=== PATIENT | female | born 1960 | race Caucasian/White ===

== ENCOUNTER 2020-08-06 15:21 | Inpatient (IN) | payer MEDICARE, MEDICAID ==
--- NOTE | 2020-08-06 15:32 | ED.PDOC ---
History of Present Illness - General Chief Complaint: Respiratory Problem Stated Complaint: tested +Covid, back pain Time Seen by Provider: 08/06/20 15:30 Source: patient - History of Present Illness Initial Comments: I was present at bedside shortly after ED arrival at 1550. 59-year-old female with past medical history of hypertension, severe COPD with chronic hypoxia on 3 L nasal cannula home oxygen, CAD with history of coronary stents, chronic smoker who presents with chief complaint of shortness of breath. Patient was sent over from [facility] by Dr. Hancock for evaluation. Patient reports initial onset of symptoms 3 days ago with worsening cough and shortness of breath since then. Symptoms further worsened overnight and this morning. She reports frequent cough which is now productive for green sputum. She reports her dyspnea at baseline is usually 5/10 severity. Currently reports it at 9/10 severity. She states it feels like she cannot take a deep breath, especially on the right side. Dyspnea and cough are worse with exertion, better at rest. She has been taking her home nebulized inhaler frequently for the past several days but has not taken it at all today. On arrival patient was noted to speak in full sentences comfortably and had O2 sats 91-94% on her baseline 3 L by nasal cannula. Denies any chest pain, sore throat, fevers, chills, abdominal pain, nausea/ vomiting/diarrhea, urinary symptoms, leg swelling. Does report slight headaches and body aches. She tested positive for COVID-19 at the clinic and was sent to be hypoxic there so she was referred to the ED for possible admission. She did have recent COVID-19 exposure by 2 different individuals. The hospitalist called to inform me that she was being sent over by Dr. Hancock, her PCP. The patient does admit to continued smoking of 1/3 pack/day cigarettes. Allergies/Adverse Reactions: Allergies Codeine Adverse Reaction (Verified 08/06/20 20:32) Home Medications: Ambulatory Orders Albuterol Sulfate Nebs [Proventil Nebs] 2.5 mg INH Q4HR PRN 08/06/20 Albuterol Sulfate [Albuterol Sulfate Hfa] 1 unit NEB Q4H PRN 08/06/20 Fluticasone/Salmeterol 250/50 [Advair Diskus] 0 mcg INH DAILY 08/06/20 LORazepam [Ativan] 1 mg PO Q12H PRN 08/06/20 Sertraline HCl [Zoloft] 25 mg PO BID 08/06/20 Tramadol HCl [Ultram] 100 mg PO Q6H PRN 08/06/20 traZODone HCL [Desyrel] 200 mg PO BEDTIME 08/06/20 Review of Systems - Review of Systems Review of Systems: 08/06/20 16:14 as per HPI All other Systems: Reviewed and Negative Past Medical History (General) - Patient Medical History Hx Dementia: No Hx of COPD: Yes Hx Cardiac Disorders: Yes Hx Hypertension: No Hx Diabetes: No Hx Cancer: No - Vaccination History Hx Tetanus, Diphtheria Vaccination: No Hx Influenza Vaccination: Yes Hx Pneumococcal Vaccination: Yes - Social History Hx Tobacco Use: Yes Hx Alcohol Use: No Hx Substance Use: No Hx Substance Use Treatment: No Hx Depression: No Family Medical History - Family History Mother Family History: Unknown Father Living Status: Age at (years of age): 51 Cause of : drug overdos Physical Exam - Physical Exam General Appearance: Alert, Comfortable, No apparent distress Eye Exam: bilateral normal Ears, Nose, Throat: hearing grossly normal, normal ENT inspection, normal pharynx Neck: full range of motion, supple, normal inspection Respiratory: no respiratory distress, no accessory muscle use, rales - Faint crackles bilateral lung bases, other - Diminished breath sounds throughout and mild end expiratory wheezing noted throughout Cardiovascular/Chest: normal peripheral pulses, no edema, no gallop, no JVD, no murmur, tachycardia Peripheral Pulses: radial,right: 2+, radial,left: 2+ Gastrointestinal/Abdominal: non tender, soft, no organomegaly Back Exam: normal inspection, no CVA tenderness, no vertebral tenderness Extremity: normal range of motion, non-tender, normal inspection, no pedal edema, no calf tenderness, normal capillary refill 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 Consider also CHF, bacterial pneumonia, ACS, influenza, other -Obtain COVID-19 order set, rapid flu testing -Place peripheral IV, Decadron 6 mg IV, breathing treatments, supplemental O2, anticipate hospitalist consultation for admission 08/06/20 18:02 -Pt remained stable, SPO2 at 91% on her baseline 3 L by nasal cannula. She does reports mild improvement in dyspnea with the breathing treatment and Decadron IV. She reported slight worsening of her her headache after the Decadron but it is now better. Repeat auscultation reveals slightly improved breath sounds and resolved wheezes but still diminished throughout. Remains with mild tachycardia. -Blood work is pretty reassuring, serum WBC, D-dimer, CRP levels all within normal limits. Flu testing negative. Urinalysis is consistent with UTI. Labs otherwise pretty unremarkable. -Given the patient's history of severe COPD with borderline hypoxia and diminished breath sounds, I advised hospital admission and patient agrees. Discussed patient with Deric Mendez who accepts to his service. We will begin NS 500 mL bolus and Rocephin 1 g IV in the ED for UTI. Jacinto Ferguson MD Billing #[id number] 08/06/20 15:30 Telemetry STAT EKG STAT Pulse Ox, Continuous Monitoring STAT 08/06/20 15:38 RAPID SARS-CoV-2 RNA Stat 08/06/20 15:45 Oxygen STAT 08/06/20 16:58 URINE CULTURE W/COLONY COUNT Stat 08/06/20 17:55 cefTRIAXone SODIUM [Rocephin] 1 gm Sodium Chl 0.9% 50Ml Min-Bag+ [NS 50ml MINI-BAG+] 50 ml IVPB ONCE 08/06/20 17:57 Sodium Chloride 0.9% 500Ml [NS 500ml] 500 ml IVS ONCE 08/07/20 15:30 Pulse Ox, Continuous Monitoring STAT 08/08/20 15:30 Pulse Ox, Continuous Monitoring STAT 08/09/20 15:30 Pulse Ox, Continuous Monitoring STAT Laboratory Results - last 24 hr 08/06/20 08/06/20 08/06/20 15:43 15:43 15:43 WBC 7.1 RBC 4.87 Hgb 13.0 Hct 38.8 MCV 79.7 L MCH 26.7 L MCHC 33.5 RDW 14.9 H Plt Count 262 MPV 8.1 Absolute Neuts (auto) 4.30 Absolute Lymphs (auto) 1.70 Absolute Monos (auto) 0.70 Absolute Eos (auto) 0.20 Absolute Basos (auto) 0.10 Neutrophils % 61.6 Lymphocytes % 24.4 Monocytes % 9.8 H Eosinophils % 3.4 Basophils % 0.8 PTT (SP) 24.2 D-Dimer, Quantitative 255.0 Sodium 135 Potassium 3.9 Chloride 100 L Carbon Dioxide 24 Anion Gap 14.9 BUN 15 Creatinine 0.85 BUN/Creatinine Ratio 17.6 Random Glucose 98 Serum Osmolality 270.9 L Calcium 8.8 Magnesium 1.8 Total Bilirubin 0.6 AST 26 ALT 32 Alkaline Phosphatase 76 LD Total 141 Creatine Kinase 69 Troponin I C-Reactive Protein 0.9 B-Natriuretic Peptide 25.4 Serum Total Protein 7.5 Albumin 3.8 Globulin 3.7 H Albumin/Globulin Ratio 1.0 L Urine Color Urine Appearance Urine pH Ur Specific [place] Urine Protein Urine Glucose (UA) Urine Ketones Urine Blood Urine Nitrite Urine Bilirubin Urine Urobilinogen Ur Leukocyte Esterase Urine RBC Urine WBC Ur Epithelial Cells Urine Bacteria Urine Trichomonas 08/06/20 08/06/20 15:43 16:58 WBC RBC Hgb Hct MCV MCH MCHC RDW Plt Count MPV Absolute Neuts (auto) Absolute Lymphs (auto) Absolute Monos (auto) Absolute Eos (auto) Absolute Basos (auto) Neutrophils % Lymphocytes % Monocytes % Eosinophils % Basophils % PTT (SP) D-Dimer, Quantitative Sodium Potassium Chloride Carbon Dioxide Anion Gap BUN Creatinine BUN/Creatinine Ratio Random Glucose Serum Osmolality Calcium Magnesium Total Bilirubin AST ALT Alkaline Phosphatase LD Total Creatine Kinase Troponin I < 0.02 C-Reactive Protein B-Natriuretic Peptide Serum Total Protein Albumin Globulin Albumin/Globulin Ratio Urine Color Yellow Urine Appearance Cloudy Urine pH 5.5 Ur Specific [place] 1.020 Urine Protein Negative Urine Glucose (UA) Negative Urine Ketones Negative Urine Blood Negative Urine Nitrite Negative Urine Bilirubin Negative Urine Urobilinogen 0.2 Ur Leukocyte Esterase Moderate H Urine RBC 3-5 H Urine WBC 30-40 H Ur Epithelial Cells 10-20 Urine Bacteria 2+ H Urine Trichomonas 0-1 H - EKG/XRAY/CT EKG: Sinus, Tachy - Heart rate 115, no ST elevations or Q waves noted, nonspecific T wave inversions noted in V1, axis normal, intervals normal, no prior EKG for comparison. XRAY: chest - patchy bibasilar airspace opacities, worse on the Right c/w COVID- 19 pneumonia per my read Departure - Departure Clinical Impression: Pneumonia due to COVID-19 virus UTI (urinary tract infection) Qualifiers: Urinary tract infection type: acute cystitis Hematuria presence: without hematuria Qualified Code(s): N30.00 - Acute cystitis without hematuria Time of Disposition: 18:00 Disposition: Admit Patient Condition: Fair Home Medications: Ambulatory Orders Albuterol Sulfate Nebs [Proventil Nebs] 2.5 mg INH Q4HR PRN 08/06/20 Albuterol Sulfate [Albuterol Sulfate Hfa] 1 unit NEB Q4H PRN 08/06/20 Fluticasone/Salmeterol 250/50 [Advair Diskus] 0 mcg INH DAILY 08/06/20 LORazepam [Ativan] 1 mg PO Q12H PRN 08/06/20 Sertraline HCl [Zoloft] 25 mg PO BID 08/06/20 Tramadol HCl [Ultram] 100 mg PO Q6H PRN 08/06/20 traZODone HCL [Desyrel] 200 mg PO BEDTIME 08/06/20 Decision To Admit - Decistion To Admit Decision to Admit Reason: Admit from ER Decision to Admit Date: 08/06/20 Decision to Admit Time: 18:00
--- NOTE | 2020-08-06 16:06 | RAD ---
Study: Single Frontal Radiograph of the Chest. Indication:COVID+, dyspnea Comparison: None Impression: Heart size normal. Atherosclerosis aorta. Patchy opacities bilateral lung bases, right greater than left, concerning for pneumonia. COVID-19 could give this appearance. Small right and tiny left pleural effusions. No pneumothorax. Electronically signed by: Jonathon Triana MD 08/06/2020 4:05 PM [employer]
[2020-08-06] MEDS ORDERED: DEXAMETHASONE INJ 4 MG/ML VIAL IV ONE (16:18)
[2020-08-06] MEDS ORDERED: IPRATROPIUM/ALBUTEROL 3 ML VIAL NEB ONE (16:18)
[2020-08-06] MEDS ORDERED: cefTRIAXone SODIUM 1 GM in SODIUM CHL 0.9% 50ML MIN-BAG+ 50 ML IVPB ONE (17:55)
[2020-08-06] MEDS ORDERED: SODIUM CHLORIDE 0.9% 1000ML 1,000 ML IVS ONE (17:55)
[2020-08-06] MEDS ORDERED: SODIUM CHLORIDE 0.9% 500ML 500 ML IVS ONE (17:57)
[2020-08-06] MEDS ORDERED: NICOTINE PATCH 21 MG TD ONE (17:59)
--- NOTE | 2020-08-06 18:37 | HP ---
SUPERVISING PHYSICIAN: Max Omer MD CHIEF COMPLAINT: Shortness of breath, positive for COVID. HISTORY OF PRESENT ILLNESS: Ms. Bryant is a 59-year-old female patient who has a history of hypertension, severe end-stage chronic obstructive pulmonary disease, chronic hypoxia on 3 liters nasal cannula oxygen with a 3- pack per day history of smoking, coronary artery disease and coronary stents. She presented to the Emergency Room today complaining of shortness of breath. She was referred to the ER from [place] by Dr. Hancock for evaluation after testing positive for COVID and having 3 days of worsening symptoms with cough and shortness of breath. Her symptoms worsened overnight to where she was using her inhaler frequently. She is having productive green sputum and frequent cough. She endorsed that she felt like she could not take a deep breath, especially on the right side. On arrival to the ER, she was showing O2 saturations of 94% on [address] Hancock requested that she be sent to the ER for evaluation for possible admission to the hospital for more aggressive treatment with Remdesivir. Laboratory studies on admission showed she had normal white count without a left shift. Coagulation studies showed normal D-dimer. Chemistries were fairly unremarkable with a normal C-reactive protein and troponin less than 0.02. Chest x-ray showed patchy opacities in bilateral lung bases, greater on the right than the left, concerning for pneumonia. She was started on treatment with Rocephin initially. A urinalysis was also done which showed that she had a significant urinary tract infection. Vital signs were actually showing she was stable, she was afebrile with temperature 97.4. She was mildly tachycardic at 110. Initial respiratory rate was 28, again, saturation 90% on nasal cannula at rest. With treatments, she improved to 94% with 3 liters nasal cannula which she normally wears at home. Given her multiple comorbidities, increasing shortness of breath and positive testing for COVID, she is going to be admitted for initiation of treatment of COVID pneumonia. She was admitted in stable condition. PAST MEDICAL HISTORY: 1. Hypertension. 2. End-stage chronic obstructive pulmonary disease, recently on hospice, but now removed from hospice, with chronic hypoxia on home O2. 3. Coronary artery disease with history of coronary stents. 4. Chronic tobacco abuse in a smoker. 5. Depression and anxiety. PAST SURGICAL HISTORY: 1. Coronary artery stents. MEDICATIONS: 1. Lorazepam 1 mg q.12h. as needed. 2. Advair Diskus daily. 3. Tramadol 100 mg q.6h. p.r.n. 4. Trazodone 200 mg at bedtime. 5. Sertraline 25 mg b.i.d. 6. Albuterol inhalers as needed. ALLERGIES: CODEINE. FAMILY HISTORY: Noncontributory to current admission. SOCIAL HISTORY: The patient resides in [place]. She is , disabled. She is a heavy smoker of approximately 3 packs per day. She denies any alcohol or illicit drug use. REVIEW OF SYSTEMS: CONSTITUTIONAL: Positive for general malaise. Denies weight loss, fevers. HEENT: She does report slight headaches. Denies sore throats, earaches, nasal congestion, vision changes. RESPIRATORY: As per history of present illness, increasing shortness of breath. CARDIOVASCULAR: Denies chest pain, palpitations or syncopal episodes. GASTROINTESTINAL: Denies nausea, vomiting, diarrhea, constipation or abdominal pain. GENITOURINARY: Denies dysuria, hematuria, polyuria. MUSCULOSKELETAL: Denies arthralgias, joint swelling. SKIN: Denies lesions, rashes, moles or unexplained changes. NEUROLOGIC: Denies vision changes, syncopal episodes, ataxia, seizures or focal deficits. HEMATOLOGIC: Denies unexplained bleeding, bruising or transfusion reactions. PHYSICAL EXAMINATION: VITAL SIGNS: In the ER, temperature 97.4, pulse 110, blood pressure 116/88, respirations 24 to 28, saturation initially 90% on nasal cannula at 2 liters. Increasing to 3 liter, she maintained O2 saturation of 96%. GENERAL: The patient is comfortable, in no acute distress. She is alert. She is resting. HEENT: Tympanic membranes clear bilaterally. Oropharynx is pink, moist without any lesions. NECK: Supple, nontender with full range of motion. No jugular venous distention noted. RESPIRATORY: Lung sounds with some mild crackles in bilateral lung bases, diminished throughout with some inspiratory and expiratory wheezing. CARDIOVASCULAR: Regular rate and rhythm. Tachycardic on the monitor without any appreciable murmurs, gallops, or rubs. ABDOMEN: Soft, nontender. Positive bowel sounds. BACK: No CVA or vertebral tenderness. EXTREMITIES: There is no cyanosis, clubbing or edema. NEUROLOGIC: Cranial nerves II-XII are grossly intact. Facial features are symmetrical. Extraocular movements are within normal limits. There is no nystagmus noted. The patient is alert and oriented times three. SKIN: Warm, pink and dry. LABORATORY: White count 7,100, hemoglobin 13.0, hematocrit 38.8. MCV, MCH show microcytic/hypochromic presentation. Platelet count 262,000. Differential is without a left shift. Coagulation studies showed normal D-dimer, normal PTT. Chemistries showed normal electrolytes with carbon dioxide 24, anion gap normal, BUN 15, creatinine 0.85, calcium 8.8, magnesium 1.8. Liver functions all within normal limits. Troponin less than 0.02. C-reactive protein 0.9. Urinalysis did show moderate leukocyte esterase with 3 to 5 RBCs on microscopic, 30 to 40 WBCs, 10 to 20 epithelials with 2+ bacteria with 0 to 1 trichomonas. MICROBIOLOGY: Urine culture pending. She tested positive for COVID 3 days previously, I believe, in [place]. Influenza A and B today in the ER was negative for A and B by PCR. RADIOLOGY: Chest x-ray per radiologic interpretation of single view chest showed patchy opacities in bilateral lung bases, right greater than left, concerning for pneumonia . ASSESSMENT: 1. COVID-19 pneumonitis with developing pneumonia. 2. Chronic obstructive pulmonary disease exacerbation secondary to #1. 3. Chronic nicotine addiction in a smoker. 4. Hypertension. 5. Depression and anxiety. 6. Urinary tract infection with cultures pending. 7. Trichomonas infestation with cultures pending, treatment initiated. PLAN: Ms. Bryant is going to be admitted for treatment of COVID pneumonia. She was started on protocol with Remdesivir, azithromycin, Rocephin, Decadron. We will start her on Lovenox for DVT prophylaxis per protocol. She will be on aggressive pulmonary hygiene. We will start her on a nicotine patch given her history of smoking. She will have albuterol inhaler treatments as needed. She is chronically O2 dependent at 3 liters at home. We will continue to titrate her oxygen to that level to maintain O2 saturations as appropriate to care. I would anticipate her length of stay to be at least 2 to 3 days. Until the patient can transition to outpatient management, we will continue to monitor and treat as needed. #[id number] MTDD
[2020-08-06] MEDS ORDERED: traMADol HCL 50 MG TAB PO ONE (18:55)
[2020-08-06] MEDS ORDERED: SODIUM CHLORIDE 0.9% (FLUSH) 10 ML SYG IV PRN (20:18)
[2020-08-06] MEDS ORDERED: ONDANSETRON INJ 4 MG/2 ML VIAL IV PRN (20:18)
[2020-08-06] MEDS ORDERED: ACETAMINOPHEN 325 MG TAB PO PRN (20:18)
[2020-08-06] MEDS ORDERED: REMDESIVIR 200 MG in SODIUM CHLORIDE 0.9% 250ML 250 ML IVPB ONE (20:22)
[2020-08-06] MEDS ORDERED: ALBUTEROL INHALER 64 PUFF/8GM INH PRN (20:24)
[2020-08-06] MEDS ORDERED: IV SET AND CAP CHANGE INJ INJ SCH (20:30)
[2020-08-06] MEDS ORDERED: SERTRALINE HCL 50 MG TAB ONE (20:34)
[2020-08-06] MEDS ORDERED: traMADol HCL 50 MG TAB ONE (20:34)
[2020-08-06] MEDS ORDERED: LORazepam 1 MG TAB ONE (20:34)
[2020-08-06] MEDS ORDERED: traZODone HCL 100 MG TAB PO ONE (20:34)
[2020-08-06] MEDS ORDERED: SODIUM CHLORIDE 0.9% 250ML 500 ML ONE (20:35)
[2020-08-06] MEDS ORDERED: REMDESIVIR IV 100 MG VIAL ONE (20:35)
[2020-08-06] MEDS ORDERED: AZITHROMYCIN IV 500 MG VIAL IVPB ONE (20:35)
[2020-08-06] MEDS: ENOXAPARIN SODIUM 40 MG/0.4 ML SYG SUBCU SCH (20:50)
[2020-08-06] MEDS ORDERED: LORazepam 1 MG TAB PO PRN (21:17)
[2020-08-06] MEDS: traZODone HCL 100 MG TAB PO SCH (21:28)
[2020-08-06] MEDS ORDERED: NON-FORMULARY MEDICATION 1 EA MIS (Sertraline Hcl [Zoloft] 25 MG) PO SCH (21:30)
[2020-08-06] MEDS: AZITHROMYCIN IV 500 MG in SODIUM CHLORIDE 0.9% 250ML 250 ML IVPB SCH (22:51)
[2020-08-07] MEDS: traMADol HCL 50 MG TAB PO PRN ×3 (05:20→22:21)
[2020-08-07] MEDS: OMEPRAZOLE CAP 20 MG CAP PO SCH (06:04)
--- NOTE | 2020-08-07 08:06 | RAD ---
EXAM DESCRIPTION: Chest,1 View CLINICAL HISTORY: covid PNA COMPARISON: August 06, 2020 IMPRESSION: Single AP portable upright view of the chest shows mild enlargement of the cardiac silhouette without pulmonary vascular congestion. Lungs are normally aerated. Interstitial alveolar airspace infiltrates in the right lower chest are again seen mildly improved from previous. Mild interstitial thickening in the left lower lobe is also seen stable from previous. No pleural effusion or pneumothorax is seen. Electronically signed by: Jose Daniel Hickman MD 08/07/2020 8:04 AM [facility]
[2020-08-07] MEDS ORDERED: SODIUM CHL 0.9% 50ML MIN-BAG+ 50 ML IVPB ONE (08:09)
[2020-08-07] MEDS ORDERED: cefTRIAXone SODIUM 1 GM VIAL ONE (08:09)
[2020-08-07] MEDS ORDERED: SERTRALINE HCL 50 MG TAB ONE (08:09)
[2020-08-07] MEDS: ALBUTEROL INHALER 64 PUFF/8GM INH SCH ×4 (08:10→19:35)
[2020-08-07] MEDS ORDERED: AZITHROMYCIN IV 500 MG VIAL IVPB ONE (08:20)
[2020-08-07] MEDS ORDERED: SODIUM CHLORIDE 0.9% 250ML 0 ML ONE (08:20)
[2020-08-07] MEDS: cefTRIAXone SODIUM 1 GM in SODIUM CHL 0.9% 50ML MIN-BAG+ 50 ML IVPB SCH (08:40)
[2020-08-07] MEDS: DEXAMETHASONE INJ 10 MG/ML VIAL IV SCH (08:40)
[2020-08-07] MEDS: BIFIDOBACTERIUM INFANTIS 4 MG CAP PO SCH (08:40)
[2020-08-07] MEDS: metroNIDAZOLE 500 MG TAB PO SCH ×2 (08:41→20:55)
[2020-08-07] MEDS: SERTRALINE HCL 50 MG TAB PO SCH ×2 (08:41→20:54)
[2020-08-07] MEDS: guaiFENesin ER TAB 600 MG TAB PO SCH ×2 (08:54→20:54)
[2020-08-07] MEDS: REMDESIVIR 100 MG in SODIUM CHLORIDE 0.9% 250ML 250 ML IVPB SCH (11:56)
[2020-08-07] MEDS: FLUTICASONE/SALMETEROL 250/50 14 PUFF/17 GM INH INH SCH ×2 (15:49→19:35)
[2020-08-07] MEDS ORDERED: MAGNESIUM HYDROXIDE 30 ML UD PO ONE (16:05)
[2020-08-07] MEDS: NICOTINE PATCH 21 MG TD SCH (16:58)
--- NOTE | 2020-08-07 17:02 | PN ---
SUPERVISING PHYSICIAN: Max Omer MD DATE: 08/07/20 SUBJECTIVE: The patient is lying in bed. She is feeling some better, but still quite weak. She has not had a bowel movement in over a week. She did say that the nicotine patch did help. No other complaints noted. OBJECTIVE: VITAL SIGNS: Temperature 98.2, heart rate 92, blood pressure 129/77, respiratory rate 22, O2 saturation 93% on 3 liters nasal cannula. RESPIRATORY: Diminished throughout. She does get slightly tachypneic with exertion. CARDIAC: Regular rate and rhythm. NEUROLOGIC: Awake, alert and oriented times three. LABORATORY: WBCs 4,600, hemoglobin 14.7, hematocrit 43.7. Fibrinogen 461, D- dimer 413. Electrolytes are basically within normal limits. LD 80. MICROBIOLOGY: Urine culture is still pending. RADIOLOGY: Single AP portable upright view of the chest mild enlargement of the cardiac silhouette without pulmonary vascular congestion. Lungs are normally aerated. Interstitial alveolar airspace infiltrates in the right lower chest are again seen, mildly improved from previous. Mild interstitial thickening in the left lower lobe is also from previous. No pleural effusion or pneumothorax is seen. All other labs and films have been reviewed via the EMR. ASSESSMENT: 1. COVID-19 pneumonitis with developing pneumonia. 2. Chronic obstructive pulmonary disease with acute exacerbation secondary to #1. 3. Chronic nicotine addiction in a smoker. 4. Hypertension. 5. Depression and anxiety. 6. Urinary tract infection with cultures pending. 7. Trichomonas infestation with cultures pending. PLAN: We will continue present supportive care including the COVID-19 pneumonitis guidelines. We will monitor the labs closely and follow as needed. Her cultures will also be followed. She will have aggressive pulmonary hygiene and hopefully we can discharge in the next one to two days. #[id number] MTDD
[2020-08-07] MEDS: AZITHROMYCIN IV 500 MG in SODIUM CHLORIDE 0.9% 250ML 250 ML IVPB SCH (20:30)
[2020-08-07] MEDS: ENOXAPARIN SODIUM 40 MG/0.4 ML SYG SUBCU SCH (20:55)
[2020-08-07] MEDS: traZODone HCL 100 MG TAB PO SCH (20:55)
[2020-08-08] MEDS: traMADol HCL 50 MG TAB PO PRN ×2 (04:23→11:38)
[2020-08-08] MEDS: OMEPRAZOLE CAP 20 MG CAP PO SCH (05:56)
--- NOTE | 2020-08-08 07:54 | RAD ---
EXAM DESCRIPTION: Chest,1 View CLINICAL HISTORY: covid PNA COMPARISON: August 07, 2020 IMPRESSION: Single AP portable upright view of the chest shows mild enlargement of the cardiac silhouette without pulmonary vascular congestion. Stable tortuosity the thoracic aorta. Lungs are normally aerated. Mild interstitial and alveolar airspace opacification in the right lower lobe is similar to slightly improved compared to previous exam compatible with pneumonia. No new infiltrates or consolidations are seen. No pleural effusion or pneumothorax is identified.. Electronically signed by: Jose Daniel Hickman MD 08/08/2020 7:52 AM [facility]
[2020-08-08] MEDS: FLUTICASONE/SALMETEROL 250/50 14 PUFF/17 GM INH INH SCH (08:28)
[2020-08-08] MEDS: ALBUTEROL INHALER 64 PUFF/8GM INH SCH ×3 (08:28→16:30)
[2020-08-08] MEDS: SERTRALINE HCL 50 MG TAB PO SCH (08:40)
[2020-08-08] MEDS: NICOTINE PATCH 21 MG TD SCH (08:41)
[2020-08-08] MEDS: BIFIDOBACTERIUM INFANTIS 4 MG CAP PO SCH (08:41)
[2020-08-08] MEDS: DEXAMETHASONE INJ 10 MG/ML VIAL IV SCH (08:41)
[2020-08-08] MEDS: guaiFENesin ER TAB 600 MG TAB PO SCH (08:41)
[2020-08-08] MEDS: metroNIDAZOLE 500 MG TAB PO SCH (08:41)
[2020-08-08] MEDS: cefTRIAXone SODIUM 1 GM in SODIUM CHL 0.9% 50ML MIN-BAG+ 50 ML IVPB SCH (08:42)
[2020-08-08] MEDS ORDERED: REMOVE OLD PATCH TOP SCH (09:00)
[2020-08-08] MEDS ORDERED: AZITHROMYCIN 250 MG TAB PO ONE ×2 (11:22→11:40)
[2020-08-08] MEDS: REMDESIVIR 100 MG in SODIUM CHLORIDE 0.9% 250ML 250 ML IVPB SCH (11:37)
[2020-08-08 13:13] VITALS: O2SAT 95
[2020-08-08] MEDS ORDERED: PNEUMOCOCCAL VACCINE 0.5 ML INJ IM ONE (13:56)
[2020-08-08 17:37] VITALS: BP 157/80; TEMP 98.2
--- NOTE | 2020-08-22 14:12 | DS ---
SUPERVISING PHYSICIAN: Max Omer MD DISCHARGE DIAGNOSIS: 1. COVID-19 pneumonitis with developing pneumonia. 2. Chronic obstructive pulmonary disease with acute exacerbation secondary to #1. 3. Chronic nicotine addiction in a smoker. 4. Hypertension. 5. Depression and anxiety. 6. Urinary tract infection. 7. Trichomonas infestation. HISTORY OF PRESENT ILLNESS: This is a 59-year-old female patient who has a history of hypertension, severe end-stage chronic obstructive pulmonary disease, chronic hypoxia on home oxygen with a 3-pack per day history of smoking, coronary artery disease and coronary stents. She came to the Emergency Room for complaints of shortness of breath. She was referred to the ER from [place] by Dr. Hancock for evaluation after testing positive for COVID-19. She had 3 days of worsening symptoms and productive green sputum with cough. Her O2 saturations in the ER were 94% on 3 liters nasal cannula. Laboratory studies were unremarkable. Chest x-ray showed patchy opacities in bilateral lung bases, right greater than left. She also had significant urinary tract infection. She was mildly tachycardic at 110. Initial respiratory rate was 28 with O2 saturation in the 90% on nasal cannula at rest. After receiving treatments, she improved to 94% on 3 liters, which she normally wears at home. Due to her multiple comorbidities, increasing shortness of breath and positive testing for COVID, she was admitted to the hospital for treatment of COVID-19 pneumonitis. HOSPITAL COURSE: She was started on the COVID guidelines including Remdesivir, azithromycin, Rocephin, Decadron as well as Lovenox for DVT prophylaxis. She had aggressive pulmonary hygiene. She also received a nicotine patch given her history of smoking. She is chronically O2 dependent at home, but we titrated the patient to her baseline. Over the next several days, she was quite weak, but she improved clinically. COVID-19 guidelines were continued. She met her baseline oxygen requirements of 3 liters per minute. Her vital signs stabilized. Labs stabilized and she will be discharged to home health today in stable condition. LABORATORY: CBCs were unremarkable. D-dimer initially was 255 and went up to 413 and is now 298. Electrolytes have been basically within normal limits. Other labs on her metabolic panel were unremarkable. MICROBIOLOGY: Urine culture initially showed no growth, but is still pending. Flu swab for A and B per PCR were both negative. RADIOLOGY: Her final chest x-ray showed no new infiltrates or consolidation seen, no pleural effusion or pneumatic identified. Lungs are normally aerated. DISCHARGE PLAN: The patient will be discharged to [facility] in stable condition. She is to resume her previous diet and increase her activity as tolerated. She is to obtain a followup appointment with Dr. Hancock in 1 to 2 weeks. In addition to her routine medications, she is also to continue with her Align, cefdinir, dexamethasone, Eliquis, guaifenesin, albuterol and azithromycin. She is to return to the hospital or followup with Dr. Hancock for any problems or complications. It is to be noted that she has been given 2 weeks of Eliquis and I will leave that up to Dr. Hancock to decide if she needs further anticoagulation at her followup appointment. DISCHARGE MEDICATIONS: 1. Lorazepam. 2. Advair. 3. Trazodone. 4. Sertraline. 5. Tramadol. 6. Albuterol. 7. Align. 8. Cefdinir. 9. Dexamethasone. 10. Eliquis. 11. Guaifenesin. 12. Azithromycin. #[id number] [facility]
== END 2020-08-08 17:10 | disposition home health service (06) | DRG 177 ==
LOC: ER 15:21 → MS 18:36 → OBSVTOIN 18:36
PROVIDERS: ADMIT Nurse Practitioner Family; ATTEND Nurse Practitioner Acute Care
PROC: XW033E5 Introduction of Remdesivir Anti-infective into Peripheral Vein, Percutaneous Approach, New Technology Group 5 (ICD-10-PCS; principal; 2020-08-06)
PROC: 3E0234Z Introduction of Serum, Toxoid and Vaccine into Muscle, Percutaneous Approach (ICD-10-PCS; 2020-08-08)
DX: U07.1 COVID-19 (principal); J12.89 Other viral pneumonia; J44.1 Chronic obstructive pulmonary disease with (acute) exacerbation; J44.0 Chronic obstructive pulmonary disease with (acute) lower respiratory infection; N30.00 Acute cystitis without hematuria; Z99.81 Dependence on supplemental oxygen; R09.02 Hypoxemia; F32.9 Major depressive disorder, single episode, unspecified; F41.9 Anxiety disorder, unspecified; I10 Essential (primary) hypertension; A59.9 Trichomoniasis, unspecified; I25.10 Atherosclerotic heart disease of native coronary artery without angina pectoris; F17.210 Nicotine dependence, cigarettes, uncomplicated; Z95.5 Presence of coronary angioplasty implant and graft; Z79.51 Long term (current) use of inhaled steroids; Z88.5 Allergy status to narcotic agent; Z63.5 Disruption of family by separation and divorce; Z73.6 Limitation of activities due to disability; Z23 Encounter for immunization